=== PATIENT | male | born 1950 | race Caucasian/White ===

== ENCOUNTER 2017-12-19 12:06 | Inpatient (IN) | payer MEDICARE, MEDICAID, SELFPAY ==
[2017-12-19] VITALS (17 sets, daily range): BP systolic 105–153; BP diastolic 60–125; PULSE 90–122; RESP 12–30; TEMP 36.9–37.6; O2SAT 96–100; BMI 22.1; BMI 22.2
--- NOTE | 2017-12-19 12:16 | ED.RN ---
10 mg morphine sl. 0.5 mg of ativan po. medications given by hospice nurse prior to arrival.
--- NOTE | 2017-12-19 12:18 | NURSING ---
sammy hart (daughter)
--- NOTE | 2017-12-19 12:31 | EKG12_ITS ---
Test Reason : SOB Blood Pressure : / mmHG Vent. Rate : 114 BPM Atrial Rate : 114 BPM P-R Int : 122 ms QRS Dur : 078 ms QT Int : 318 ms P-R-T Axes : 085 080 065 degrees QTc Int : 438 ms Sinus tachycardia Possible Left atrial enlargement Borderline ECG Confirmed by ANA BARNHART, MAICO ([id number]), photograph editor LANDON HOBOSN ([id number]) on 12/21/2017 9:24:09 AM Referred By: Teri Jones Confirmed By:MAICO PEREZ MD
--- NOTE | 2017-12-19 12:31 | RAD_ITS ---
STUDY: X-RAY CHEST REASON FOR EXAM: Male, 67 years old. Cough and shortness of breath. TECHNIQUE: Single AP portable view of the chest. COMPARISON: Comparison is made with prior study dated July 11, 2013. FINDINGS: EKG electrodes are seen. Hyperinflation. Decreased bronchovascular markings more prominent in the upper lobes suggestive of emphysematous change. There is no demonstrated pleural abnormality. Normal size heart. Normal mediastinum and kaden. Normal visualized pulmonary arteries. Normal visualized aortic arch and descending thoracic aorta. There are degenerative changes of the visualized thoracic spine. Normal visualized ribs, clavicles, and shoulders. There is no demonstrated abnormality of the visualized soft tissue structures of the upper abdomen. RAD/Chest 1 View (Portable) IMPRESSION: Hyperinflation. Findings suggestive of emphysematous changes. Electronically Signed: Akbar Friedman MD at 13:03 EDT Tel [phone], Service support ,
[2017-12-19] MEDS: 0.9% Normal Saline 1,000 ML 150 ML IV (12:45)
[2017-12-19] MEDS: MethylPREDNISolone 125 MG/2 ML Vial IV (12:45)
[2017-12-19 12:47] LABS: Absolute Lymphocyte Count 1.39 X10^3/ul (0.83-4.51); Absolute Neutrophil Count 13.3 X10^3/uL (2.0-7.7); Basophil# 0.02 X10^3/uL; Basophil% 0.1 % (0-1); Eosinophil# 0.33 X10^3/uL; Hematocrit 39.8 % (40-54); Hemoglobin 12.7 g/dl (13.0-16.5); Lymphocyte # 1.39 X10^3/ul (4.0); Lymphocyte % 8.6 % (19-41); Mean Corp Hgb Conc 31.9 g/gl (32-36); Mean Corpuscular Volume 93.9 fL (80-94); Monocyte# 1.12 X10^3/uL; Monocyte% 6.9 % (0-10); Neutrophil # 13.29 X10^3/uL (2.7-7.7); Neutrophil % 82.2 % (47-70); POSITIVE COUNT NO; POSITIVE DIFFERENTIAL NO; POSITIVE MORPHOLOGY NO; Platelet Count 199 K/mm3 (150-450); RBC Distribution Width CV 12.7 % (11.6-14.6); RBC Distribution Width SD 43.7 fl (35.1-43.9); Red Blood Count 4.24 M/mm3 (4.6-6.2); White Blood Count 16.2 K/mm3 (4.4-11.0)
[2017-12-19] MEDS: Ipratropium/Albuterol Sulfate 3 ML AMPUL.NEB INHALATION ×3 (12:48→22:41)
[2017-12-19] MEDS: Albuterol 2.5 MG/3 ML VIAL.NEB. INHALATION (12:48)
[2017-12-19 12:57] LABS: Anion Gap 5 (5-15); BUN 15 mg/dL (7-18); Calcium,Total 8.4 mg/dL (8.5-10.1); Chloride 102 mmol/L (98-107); EST Glomerular Filtration Rate 79 mL/min (>60); Est Glom Filt Rate - Afr Amer 96 mL/min (>60); Estimated Creatinine Clearance 63.87 ml/min; Glucose 92 mg/dL (74-106); Potassium 3.8 mmol/L (3.5-5.1); Sodium Level 138 mmol/L (136-145)
[2017-12-19 13:05] LABS: Lactic Acid 0.8 mmol/L (0.4-2.0)
[2017-12-19 13:15] LABS: Allen Test POS; Base Excess 8 mmol/L (-2 to +2); Bicarbonate 32.6 mmol/L (22-26); Blood Gas Specimen Type ART; EPAP 10; FI02 30; PO2 91 mmHG (75-100); RR 12; SITE R Radial; SO2 97 % (95-99); Time Given 1307; Total Carbon Dioxide 34 mmol/L; pCO2 50.6 mmHg (35-45); pH 7.42 (7.35-7.45)
--- NOTE | 2017-12-19 13:29 | ED.DCSUM_ITS ---
- ER Visit Summary Date of Service: 12/19/17 Chief Complaint: Shortness of breath History of Present Illness: The patient is a 67 M who does not remember primary care physician's name. He reports that he has been on hospice since April or May of this year. However, the hospice nurse reports that he is full code. Patient reports his shortness of breath began yesterday and is gradually worsened. Severe at worst moderate currently. Is worsened by walking periods relieved by oxygen and his nebulizer. He believes that this is because he ate cheese pizza. Patient denies any fever or chills. Does report he has a cough that began yesterday is productive of lee sputum without blood. He denies any chest pain. Physical Examination: Vitals: Stable. Afebrile. General: Well-nourished and well-developed. Head: Normocephalic atraumatic. Neck: Supple, no lymphadenopathy. No JVD. Nontender. Cardiovascular: Tachycardic regular rhythm. No murmurs. Respiratory: Moderate respiratory distress with mild wheezing bilaterally. Greatly decreased air movement.. Abdominal: Soft, nontender, nondistended, normal bowel sounds. No guarding, rebound, or peritoneal signs. Back: Nontender. Extremities: Nontender, 1+ pitting edema to his lower extremity bilaterally.. Skin: Normal color, no rash. Neurologic: Alert and oriented ?3. Cranial nerves II through XII are intact. Normal strength and sensation. Psych: Normal affect. Test Results: EKG is sinus tachycardia [address] changes. ABC is more for white count of 16.2 with 82 7 neutrophils and 9 lymphocytes. H&H is 12.7 39.8. Chem-7 is more for calcium 8.4. Troponin is negative. Lactic acid is 0.8. ABG shows a pH of 7.417 with a CO2 of 50.6, O2 of 91, bicarb of 32.6. Chest x-ray shows severe emphysematous changes. Emergency Department Course and Treatment: Patient was placed on BiPAP. He was given albuterol Atrovent aerosols. He was given a dose of Solu-Medrol IV. I did have a prolonged discussion with the patient about his wishes if he was to worsen. He is having a difficult time coming up with a definitive answer. Treatment Plan: Patient will be discussed with the hospitalist and admitted for further evaluation and treatment. I did discuss with him that the issue of intubation is going to be asked repeatedly and he needs to make a definitive decision as to what he would like to do with this. Disposition: Admitted in serious condition. Impression: 1. COPD exacerbation. 2. Hospice patient. 3. DNR CCA. This note was generated with [employer] dictation software. It may contain incorrect words, spelling, and punctuation that were not noted in review of the chart prior to signing ED Disposition - Plan for ED Patient: Chief Complaint: Shortness of Breath
--- NOTE | 2017-12-19 13:37 | PCM.HP.STD ---
Problem List (1) Acute exacerbation of chronic obstructive pulmonary disease (COPD) Status: Acute (2) Leukocytosis (leucocytosis) Status: Acute Qualifiers: Leukocytosis type: unspecified Qualified Code(s): D72.829 - Elevated white blood cell count, unspecified History of Present Illness Date of Admission: 12/19/17 Chief Complaint: Shortness of breath - 2 days The patient is a 67 year old M with past medical history of COPD, on 3 L oxygen at home, in hospice since April 2017, who comes in with complaints of shortness of breath and cough ongoing since last night. Patient said that he ate some cheese pizza and that does not always agree with him. He started having congestion and shortness of breath associated with wheezing. He found that he was getting worse and the EMS was called. On arrival, they found him in a tripod position, having labored breathing, respiratory rate was 44, and air entry was diminished bilaterally. He was saturating in the high 70s, unable to say any words, started on CPAP with some improvement. In the ED, his heart rate was 122, blood pressure 153/125, his blood pressure later settled to 105/60, respiratory rate was 27, SPO2 was 100% on BiPAP. His admitting blood work showed WBC count of 16.2, Hb of 12.7, platelet count 199, BMP was unremarkable, ABG showed pH 7.42, PCO2 was 50.6, PO2 91 Admitting chest x-ray showed hyperinflation with no infiltrate. Past Medical History Past Medical History (Chronic Problems): Chronic Problems COPD (chronic obstructive pulmonary disease) (Chronic) Tobacco user (Chronic) Generalized osteoarthritis (Chronic) Allergies No Known Allergies Allergy (Verified 12/19/17 12:10) Home Medications: Ambulatory Orders Medication Instructions Recorded Aspirin 325 mg PO DAILY@0800 07/11/13 Albuterol Inhaler [Ventolin Hfa] 1 - 2 puff INHALATION Q2H PRN PRN 07/13/13 #1 Beclomethasone Diprop Inhaler 1 puff INHALATION BID 12/15/16 [Qvar 80 Mcg Inhaler] Gabapentin [Neurontin] 300 mg PO TID 12/15/16 Pravastatin Sodium [Pravachol] 20 mg PO QHS 12/15/16 Alfuzosin HCl [Alfuzosin HCl ER] 10 mg PO DAILY 12/19/17 Ipratropium/Albuterol Sulfate 3 ml INHALATION 4X/DAY 12/19/17 [Duoneb] Meloxicam [Meloxicam] 15 mg PO DAILY 12/19/17 Omeprazole [Omeprazole] 20 mg PO DAILY 12/19/17 Surgical History: appendectomy Psychiatric History: No pertinent psych hx Lives: Spouse/ Significant Other, With Family Smoking Status: Former smoker Tobacco Use: Non-smoker Alcohol: None Drugs: None - *Family History Maternal History Items: Stroke Paternal History Items: Heart Disease Review of Systems Constitutional: Reports: Weakness. Denies: Anorexia, Chills, Fever, Malaise, Weight Change Eyes: Denies: Blurred vision, Cataracts, Conjunctivae Inflammation, Pain, Redness, Vision Change HEENT: Reports: Nasal Congestion. Denies: Difficulty Hearing, Difficulty Swallowing, Head Aches, Hearing Changes, Sinus Congestion, Sinus Drainage, Sore Throat Cardiovascular: Reports: Chest Tightness. Denies: Chest Pain, Claudication, Light Headedness, Orthopnea, Palpitations, Paroxysmal Noc. Dyspnea, Syncope Respiratory: Reports: Cough, Shortness of breath at rest, Shortness of breath upon exertion. Denies: Pleuritic Pain, Sputum production Gastrointestinal: Denies: Abdominal Pain, Constipation, Nausea, Vomiting Genitourinary: Denies: Dysuria, Frequency, Incontinence, Nocturia Musculoskeletal: Denies: Joint Pain, Joint stiffness, Joint swelling, Joint Tenderness Skin: Denies: Dryness, Jaundice, Rash, Wounds Neurological: Denies: Difficulty swallowing, Focal weakness, Headaches, Numbness, Tingling Psychiatric: Denies: Anxiety, Depression, Homicidal Ideations, Suicidal Ideations Hematologic/ Lymphatic: Denies: Easy Bruising, Easy Bleeding VTE Information - Inpt Only VTE Present on Admission: No VTE Pharm Prophylaxis ordered?: Yes Patient Problems: Active and Suspected Problems Acute exacerbation of chronic obstructive pulmonary disease (COPD) (Acute) Leukocytosis (leucocytosis) (Acute) - Physical Exam General: Alert, Oriented x3, Cooperative, - - in moderate HEENT: Atraumatic, PERRLA, EOMI, Normocephalic Oral: Dry Mucosa Neck: Supple, No JVD, Negative Carotid Bruits Lungs: Clear to auscultation, Normal air movement, Diminished, - - on Bipap Cardiovascular: Regular rate, Regular Rhythm, Normal S1, Normal S2, No murmurs, Tachycardic Abdomen: Bowel Sounds Present, Soft, Non Tender, Non-Distended, No Hepato-splenomegaly Extremities: No edema Skin: No rashes, No breakdown Musculoskeletal: No Tenderness to Palpation of Joints or Extremities Lymphatic: No Cervical, Supraclavicular, or Inguinal Adenopathy Neurological: Cranial nerves II-XII grossly intact, Neuro grossly intact Psych/Mental Status: Normal Affect, Appropriate Vital Signs Temp Pulse Resp BP Pulse Ox 99.7 F H 101 H 25 H 105/60 99 12/19/17 12:07 12/19/17 12:48 12/19/17 12:48 12/19/17 12:17 12/19/17 12:17 Oxygen Delivery Method Bi-pap Weight: 62.142 kg Body Mass Index (BMI) 22.1 Laboratory Tests Past 24 Hrs 12/19/17 12/19/17 12/19/17 12:15 12:15 12:15 WBC 16.2 H RBC 4.24 L Hgb 12.7 L Hct 39.8 L MCV 93.9 MCH 30.0 MCHC 31.9 L RDW 12.7 RDW Differential 43.7 Plt Count 199 MPV 10.0 Immature Gran % (Auto) 0.200 Neut % (Auto) 82.2 H Lymph % (Auto) 8.6 L [place] % (Auto) 6.9 Eos % (Auto) 2.0 Baso % (Auto) 0.1 Absolute Neuts (auto) 13.3 H Absolute Lymphs (auto) 1.39 Total Counted Not Reportable Specimen Type Sample Site pH Bicarbonate Actual POC Total CO2 Base Excess O2 Saturation O2 % ABG pCO2 ABG pO2 Bhargav Test Respiration Rate O2 Delivery Device EPAP Blood Gas Notified Whom Blood Gas Notified Time Sodium 138 Potassium 3.8 Chloride 102 Carbon Dioxide 31.0 Anion Gap 5 BUN 15 Creatinine 1.00 Estim Creat Clear Calc 63.87 Est GFR (MDRD) Af Amer 96 Est GFR (MDRD) Non-Af 79 BUN/Creatinine Ratio 15.0 Glucose 92 Lactic Acid 0.8 Calcium 8.4 L Troponin I 0.017 12/19/17 13:08 WBC RBC Hgb Hct MCV MCH MCHC RDW RDW Differential Plt Count MPV Immature Gran % (Auto) Neut % (Auto) Lymph % (Auto) [place] % (Auto) Eos % (Auto) Baso % (Auto) Absolute Neuts (auto) Absolute Lymphs (auto) Total Counted Specimen Type ART Sample Site R Radial pH 7.42 Bicarbonate Actual 32.6 H POC Total CO2 34 Base Excess 8 H O2 Saturation 97 O2 % 30 ABG pCO2 50.6 H ABG pO2 91 Bhargav Test POS Respiration Rate 12 O2 Delivery Device Bi / C PAP EPAP 10 Blood Gas Notified Whom ED Blood Gas Notified Time 1307 Sodium Potassium Chloride Carbon Dioxide Anion Gap BUN Creatinine Estim Creat Clear Calc Est GFR (MDRD) Af Amer Est GFR (MDRD) Non-Af BUN/Creatinine Ratio Glucose Lactic Acid Calcium Troponin I Assessment/Plan All Active Problems Acute exacerbation of chronic obstructive pulmonary disease (COPD) (Acute) Leukocytosis (leucocytosis) (Acute) 67 year old M with past medical history of COPD, on 3 L oxygen at home, in hospice since April 2017, who comes in with complaints of shortness of breath and cough ongoing since last night. 1. Acute hypoxic respiratory failure secondary to COPD exacerbation, currently on BiPAP, will continue breathing treatments, IV steroids, wean off oxygen 2. Acute COPD exacerbation, no infiltrates seen on x-ray, will continue on IV steroids, breathing treatment, IV azithromycin 3. Leukocytosis, likely secondary to inhaled steroids versus reactive, will trend lab in a.m. 4. Hyperlipidemia, on statin 5. BPH on alfuzosin 6. DVT Ppx- Heparin SC 7. Code status: Patient is in hospice, full code. He admits that several people have talked to him about addressing his CODE STATUS. He understands that if his lungs and oxygen requirement should get bad, he does not want to be intubated, he wants to be allowed to take the easy way out I did explain the differences between DNR CCA, DNR CCA and full code. He would like to appoint his daughter who he lives with as his power of workers compensation attorney for healthcare as his other son lives in [place]. Try to call the daughter phone number listed in the system but the number was wrong. Case management consulted to assist in Health care power of workers compensation attorney paperwork His plan is to go back to hospice after discharge. Time spent in addressing CODE STATUS and the plan of care was 20 minutes. Code Visit Inpatient E&M: 63445 Init Hosp L3
[2017-12-19] MEDS: 0.9% Normal Saline 1,000 ML 75 ML IV (16:01)
[2017-12-19] MEDS: Gabapentin 300 MG Capsule PO ×2 (16:04→21:35)
[2017-12-19] MEDS: Heparin Injection (Vial) 5,000 UNIT/ML VIAL 5000 UNIT SC ×2 (16:05→21:35)
--- NOTE | 2017-12-19 16:31 | CASEMGMT ---
ROSAMARIA called [facility] and spoke with Yoana. She verified patient has been active with them since April of 2017 for COPD. He signed Hospice revocation papers today so he can pursue aggressive treatment. ROSAMARIA told Yoana BLANK will communicate with them once ROSAMARIA knows more about d/c. Rubi MARQUEZ FUSE CUP EXPANDER
[2017-12-19] MEDS: 0.9% NaCl Peripheral Flush Adult/Peds IV (21:35)
[2017-12-19] MEDS: guaiFENesin 600 MG Tablet PO (21:35)
[2017-12-19] MEDS: Pravastatin 20 MG Tablet PO (21:35)
[2017-12-20] VITALS (23 sets, daily range): BP systolic 116–175; BP diastolic 61–88; PULSE 74–126; RESP 12–28; TEMP 36.2–37.2; O2SAT 92–100
[2017-12-20] MEDS: Ipratropium/Albuterol Sulfate 3 ML AMPUL.NEB INHALATION ×6 (02:12→23:16)
[2017-12-20] MEDS: 0.9% NaCl Peripheral Flush Adult/Peds IV ×4 (05:22→22:04)
[2017-12-20 05:31] LABS: Absolute Lymphocyte Count 0.72 X10^3/ul (0.83-4.51); Basophil# 0.01 X10^3/uL; Basophil% 0.1 % (0-1); Hematocrit 36.3 % (40-54); Hemoglobin 11.5 g/dl (13.0-16.5); Lymphocyte # 0.72 X10^3/ul (4.0); Lymphocyte % 4.9 % (19-41); Mean Corp Hgb Conc 31.7 g/gl (32-36); Mean Corpuscular Hgb 30.3 pg (27.0-32.0); Mean Corpuscular Volume 95.5 fL (80-94); Mean Platelet Vol. 9.5 fl (6.2-12.0); Monocyte# 0.91 X10^3/uL; Monocyte% 6.2 % (0-10); Neutrophil # 12.95 X10^3/uL (2.7-7.7); Neutrophil % 88.5 % (47-70); Platelet Count 183 K/mm3 (150-450); RBC Distribution Width CV 12.6 % (11.6-14.6); RBC Distribution Width SD 42.4 fl (35.1-43.9); White Blood Count 14.6 K/mm3 (4.4-11.0)
[2017-12-20 05:33] LABS: POSITIVE COUNT NO; POSITIVE DIFFERENTIAL NO; POSITIVE MORPHOLOGY NO
[2017-12-20] MEDS: Gabapentin 300 MG Capsule PO ×3 (05:46→22:04)
[2017-12-20] MEDS: Heparin Injection (Vial) 5,000 UNIT/ML VIAL 5000 UNIT SC ×3 (05:46→22:03)
[2017-12-20] MEDS: Magnesium Hydroxide 30 ML UDC PO (05:50)
[2017-12-20 05:54] LABS: Anion Gap 6 (5-15); BUN 18 mg/dL (7-18); Calcium,Total 8.6 mg/dL (8.5-10.1); Chloride 105 mmol/L (98-107); EST Glomerular Filtration Rate 79 mL/min (>60); Est Glom Filt Rate - Afr Amer 96 mL/min (>60); Estimated Creatinine Clearance 64.15 ml/min; Glucose 131 mg/dL (74-106); Potassium 4.5 mmol/L (3.5-5.1); Sodium Level 142 mmol/L (136-145)
[2017-12-20] MEDS: Pantoprazole Sodium 20 MG Tablet PO (09:22)
[2017-12-20] MEDS: Bisacodyl 5 MG Tablet PO (09:22)
[2017-12-20] MEDS: Aspirin 325 MG Tablet PO (09:22)
[2017-12-20] MEDS: guaiFENesin 600 MG Tablet PO ×2 (09:22→22:04)
--- NOTE | 2017-12-20 09:30 | CPS ---
PATIENT WORKING ON PEP ON OWN
--- NOTE | 2017-12-20 13:18 | CASEMGMT ---
Face to Face with patient for initial transition planning/care coordination assessment. RN MERCEDES introduced self and role at [facility], pt voices understanding and consents to assessment at this time. Pt is lying in bed in no distress at this time. Pt is A/Ox4 at this time and answers all questions appropriately at this time. Care providers, pharmacy, and demographics verified. See attached link. Pt voices no further concerns/needs at this time. Advised pt to ask for CM if any further questions/concerns/needs arise, voices understanding. PLAN: Home w/ resumption [facility]ospice [facility]
--- NOTE | 2017-12-20 14:11 | PCM.PROGNOTE ---
<Karan Ghotra - Last Filed: 12/20/17 14:11> Patient Problems: Active and Suspected Problems Acute exacerbation of chronic obstructive pulmonary disease (COPD) (Acute) Leukocytosis (leucocytosis) (Acute) Subjective: SOB mildly improved. Continue to have productive cough. No fever or chills. Quit smoking about 1 year ago. Does use home o2 at 3 lpm chronically. - Physical Exam General: Alert, Oriented x3, Cooperative HEENT: Atraumatic, PERRLA, EOMI, Normocephalic Neck: Supple, No JVD, Negative Carotid Bruits Lungs: Diminished Cardiovascular: Regular rate, No murmurs Abdomen: Bowel Sounds Present, Soft, Non Tender Extremities: No edema, Capillary Refill Less than 3 Seconds Skin: No rashes, No breakdown Musculoskeletal: No Tenderness to Palpation of Joints or Extremities Neurological: Cranial nerves II-XII grossly intact Psych/Mental Status: Normal Affect, Appropriate, Alert and oriented to time, place, person, mood and affect Vital Signs Temp Pulse Resp BP Pulse Ox 97.4 F L 99 16 124/61 H 99 12/20/17 09:15 12/20/17 11:32 12/20/17 11:32 12/20/17 09:15 12/20/17 11:32 Oxygen Flow Rate (L/min) 3 Oxygen Delivery Method Nasal Cannula Weight: 137 lb 9.6 oz Body Mass Index (BMI) 22.1 Intake and Output for Last 24 Hours 12/18/17 12/19/17 12/20/17 23:59 23:59 23:59 Intake Total 1288 / 1288 926 / 926 Balance 1288 / 1288 926 / 926 Laboratory Tests Past 24 Hrs 12/20/17 12/20/17 05:15 05:15 WBC 14.6 H RBC 3.80 L Hgb 11.5 L Hct 36.3 L MCV 95.5 H MCH 30.3 MCHC 31.7 L RDW 12.6 RDW Differential 42.4 Plt Count 183 MPV 9.5 Immature Gran % (Auto) 0.300 Neut % (Auto) 88.5 H Lymph % (Auto) 4.9 L [place] % (Auto) 6.2 Eos % (Auto) 0.0 Baso % (Auto) 0.1 Absolute Neuts (auto) 13.0 H Absolute Lymphs (auto) 0.72 L Total Counted Not Reportable Sodium 142 Potassium 4.5 Chloride 105 Carbon Dioxide 31.0 Anion Gap 6 BUN 18 Creatinine 1.00 Estim Creat Clear Calc 64.15 Est GFR (MDRD) Af Amer 96 Est GFR (MDRD) Non-Af 79 BUN/Creatinine Ratio 18.0 Glucose 131 H Calcium 8.6 Medical Necessity - Tobacco Use Smoking Status: Former smoker Tobacco Use: Cigarettes, Cigars, Pipe Assessment/Plan All Active Problems Acute exacerbation of chronic obstructive pulmonary disease (COPD) (Acute) Leukocytosis (leucocytosis) (Acute) 1. Acute sepsis 2/2 acute bronchitis - present on admission with WBC elevation, tachycardia, tachypnea. azithromycin. WBC improved. Afebrile. Tachy. Sputum cx. No infiltrate on imaging. LA negative. 2. Acute COPD exacerbation with chronic hypoxic resp failure - mildly improved. Very diminished. 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 Continue steroids, aerosols, IS/PEP therapy, mucinex. 3. HLD - statin 4. BPH - flomax 5. Former smoker. DVT ppx: heparin DC planning: slow improvement. This patient was seen by Karan Ghotra PA-C under the supervision of Doctor Jacob. <Alex James - Last Filed: 12/20/17 15:46> Subjective: Patient seen and examined. Patient has advanced COPD stage IV on 3 L of home oxygen and BiPAP at night. Patient has cough, wheezing and rhonchi. Patient admitted with shortness of breath. - Physical Exam General: Alert, Oriented x3, Cooperative, - - Thin built HEENT: Atraumatic, PERRLA, EOMI, Normocephalic Neck: Supple, No JVD, Negative Carotid Bruits Lungs: Diminished, Rhonchi, Short of Breath, Wheezes Cardiovascular: Regular rate, Regular Rhythm, Normal S1, Normal S2, No murmurs Abdomen: Bowel Sounds Present, Soft, Non Tender Extremities: No edema, Capillary Refill Less than 3 Seconds Skin: No rashes, No breakdown Musculoskeletal: No Tenderness to Palpation of Joints or Extremities Neurological: Cranial nerves II-XII grossly intact Psych/Mental Status: Normal Affect, Appropriate Vital Signs Temp Pulse Resp BP Pulse Ox 97.4 F L 99 16 124/61 H 99 12/20/17 09:15 12/20/17 11:32 12/20/17 11:32 12/20/17 09:15 12/20/17 11:32 Oxygen Flow Rate (L/min) 3 Oxygen Delivery Method Nasal Cannula Weight: 137 lb 9.6 oz Body Mass Index (BMI) 22.1 Intake and Output for Last 24 Hours 12/18/17 12/19/17 12/20/17 23:59 23:59 23:59 Intake Total 1288 / 1288 926 / 926 Balance 1288 / 1288 926 / 926 Laboratory Tests Past 24 Hrs 12/20/17 12/20/17 05:15 05:15 WBC 14.6 H RBC 3.80 L Hgb 11.5 L Hct 36.3 L MCV 95.5 H MCH 30.3 MCHC 31.7 L RDW 12.6 RDW Differential 42.4 Plt Count 183 MPV 9.5 Immature Gran % (Auto) 0.300 Neut % (Auto) 88.5 H Lymph % (Auto) 4.9 L [place] % (Auto) 6.2 Eos % (Auto) 0.0 Baso % (Auto) 0.1 Absolute Neuts (auto) 13.0 H Absolute Lymphs (auto) 0.72 L Total Counted Not Reportable Sodium 142 Potassium 4.5 Chloride 105 Carbon Dioxide 31.0 Anion Gap 6 BUN 18 Creatinine 1.00 Estim Creat Clear Calc 64.15 Est GFR (MDRD) Af Amer 96 Est GFR (MDRD) Non-Af 79 BUN/Creatinine Ratio 18.0 Glucose 131 H Calcium 8.6 Assessment/Plan This patient was seen in conjunction with Karan LAI. I have independently interviewed and examined the patient and reviewed pertinent history, examination findings, laboratory and plan of management. I have reviewed the note and agree with the documented findings with the few additional points. In brief, patient is admitted for acute on chronic shortness of breath and wheezing consistent with COPD exacerbation with acute bronchitis, most probably viral. Currently still on 3 L of oxygen, consistent with chronic combined hypoxic respiratory failure. Chest x-ray does not show acute infiltrate but emphysematous changes. Labs reviewed and shows leukocytosis with neutrophil 88%. I have discussed my assessment with Karan LAI and orders have been reviewed. Clinical Impression(s) from Imaging Studies Chest X-Ray 12/19/17 12:31 IMPRESSION: Hyperinflation. Findings suggestive of emphysematous changes. Laboratory Results 12/20/17 05:15: WBC 14.6 H, RBC 3.80 L, Hgb 11.5 L, Hct 36.3 L, MCV 95.5 H, MCH 30.3, MCHC 31.7 L, RDW 12.6, RDW Differential 42.4, Plt Count 183, MPV 9.5, Immature Gran % (Auto) 0.300, Neut % (Auto) 88.5 H, Lymph % (Auto) 4.9 L, [place] % (Auto) 6.2, Eos % (Auto) 0.0, Baso % (Auto) 0.1, Absolute Neuts (auto) 13.0 H, Absolute Lymphs (auto) 0.72 L, Total Counted Not Reportable 12/20/17 05:15: Sodium 142, Potassium 4.5, Chloride 105, Carbon Dioxide 31.0, Anion Gap 6, BUN 18, Creatinine 1.00, Estim Creat Clear Calc 64.15, Est GFR (MDRD) Af Amer 96, Est GFR (MDRD) Non-Af 79, BUN/Creatinine Ratio 18.0, Glucose 131 H, Calcium 8.6 Active Medications Acetaminophen (Tylenol) 650 mg PO Q6H PRN PRN PRN Reason: Mild Pain (1-3)/Temp > 100.7 F Albuterol Sulfate (Ventolin Aerosols) 2.5 mg INHALATION Q2H PRN PRN PRN Reason: SHORTNESS OF BREATH Albuterol/Ipratropium (Duoneb) 3 ml INHALATION Q4H.RT [facility] Last Admin: 12/20/17 15:05 Dose: 3 ml Aspirin (Aspirin) 325 mg PO DAILY@0800 [facility] Last Admin: 12/20/17 09:22 Dose: 325 mg Azithromycin (Zithromax) 500 mg PO Q24 [facility] Stop: 12/22/17 10:01 Bisacodyl (Dulcolax) 5 mg PO DAILY PRN PRN PRN Reason: Constipation Last Admin: 12/20/17 09:22 Dose: 5 mg Gabapentin (Neurontin) 300 mg PO TID [facility] Last Admin: 12/20/17 13:11 Dose: 300 mg Guaifenesin (Mucinex) 600 mg PO BID [facility] Last Admin: 12/20/17 09:22 Dose: 600 mg Heparin Sodium (Porcine) (Heparin Na) 5,000 unit SC Q8 [facility] Last Admin: 12/20/17 13:11 Dose: 5,000 unit Magnesium Hydroxide (Milk Of Magnesia) 30 ml PO DAILY PRN PRN Reason: Constipation Last Admin: 12/20/17 05:50 Dose: 30 ml Methylprednisolone (Solu-Medrol) 40 mg IV Q8 [facility] Last Admin: 12/20/17 13:11 Dose: 40 mg Nutritional Formula (Lactose Free) (Ensure Enlive) 120 ml PO 4X/DAY [facility] Last Admin: 12/20/17 13:11 Dose: 120 ml Ondansetron HCl (Zofran) 4 mg IV Q8H PRN PRN PRN Reason: NAUSEA Pantoprazole Sodium (Protonix) 20 mg PO DAILY [facility] Last Admin: 12/20/17 09:22 Dose: 20 mg Pravastatin Sodium (Pravachol) 20 mg PO QHS [facility] Last Admin: 12/19/17 21:35 Dose: 20 mg Psyllium Hydrophilic Mucilloid (Metamucil) 1 packet PO DAILY PRN PRN PRN Reason: CONSTIPATION Sodium Chloride () 5 - 30 ml IV UD PRN PRN Reason: SALINE FLUSH Last Admin: 12/20/17 13:12 Dose: 10 ml Tamsulosin HCl (Flomax) 0.4 mg PO DAILY@1730 [facility] Code Visit Inpatient E&M: 77886 [facility] Hosp L3
--- NOTE | 2017-12-20 14:16 | PN_ITS ---
<Karan Ghotra - Last Filed: 12/20/17 14:11> Patient Problems: Active and Suspected Problems Acute exacerbation of chronic obstructive pulmonary disease (COPD) (Acute) Leukocytosis (leucocytosis) (Acute) Subjective: SOB mildly improved. Continue to have productive cough. No fever or chills. Quit smoking about 1 year ago. Does use home o2 at 3 lpm chronically. - Physical Exam General: Alert, Oriented x3, Cooperative HEENT: Atraumatic, PERRLA, EOMI, Normocephalic Neck: Supple, No JVD, Negative Carotid Bruits Lungs: Diminished Cardiovascular: Regular rate, No murmurs Abdomen: Bowel Sounds Present, Soft, Non Tender Extremities: No edema, Capillary Refill Less than 3 Seconds Skin: No rashes, No breakdown Musculoskeletal: No Tenderness to Palpation of Joints or Extremities Neurological: Cranial nerves II-XII grossly intact Psych/Mental Status: Normal Affect, Appropriate, Alert and oriented to time, place, person, mood and affect Vital Signs Temp Pulse Resp BP Pulse Ox 97.4 F L 99 16 124/61 H 99 12/20/17 09:15 12/20/17 11:32 12/20/17 11:32 12/20/17 09:15 12/20/17 11:32 Oxygen Flow Rate (L/min) 3 Oxygen Delivery Method Nasal Cannula Weight: 137 lb 9.6 oz Body Mass Index (BMI) 22.1 Intake and Output for Last 24 Hours 12/18/17 12/19/17 12/20/17 23:59 23:59 23:59 Intake Total 1288 / 1288 926 / 926 Balance 1288 / 1288 926 / 926 Laboratory Tests Past 24 Hrs 12/20/17 12/20/17 05:15 05:15 WBC 14.6 H RBC 3.80 L Hgb 11.5 L Hct 36.3 L MCV 95.5 H MCH 30.3 MCHC 31.7 L RDW 12.6 RDW Differential 42.4 Plt Count 183 MPV 9.5 Immature Gran % (Auto) 0.300 Neut % (Auto) 88.5 H Lymph % (Auto) 4.9 L Gosper % (Auto) 6.2 Eos % (Auto) 0.0 Baso % (Auto) 0.1 Absolute Neuts (auto) 13.0 H Absolute Lymphs (auto) 0.72 L Total Counted Not Reportable Sodium 142 Potassium 4.5 Chloride 105 Carbon Dioxide 31.0 Anion Gap 6 BUN 18 Creatinine 1.00 Estim Creat Clear Calc 64.15 Est GFR (MDRD) Af Amer 96 Est GFR (MDRD) Non-Af 79 BUN/Creatinine Ratio 18.0 Glucose 131 H Calcium 8.6 Medical Necessity - Tobacco Use Smoking Status: Former smoker Tobacco Use: Cigarettes, Cigars, Pipe Assessment/Plan All Active Problems Acute exacerbation of chronic obstructive pulmonary disease (COPD) (Acute) Leukocytosis (leucocytosis) (Acute) 1. Acute sepsis 2/2 acute bronchitis - present on admission with WBC elevation, tachycardia, tachypnea. azithromycin. WBC improved. Afebrile. Tachy. Sputum cx. No infiltrate on imaging. LA negative. 2. Acute COPD exacerbation with chronic hypoxic resp failure - mildly improved. Very diminished. 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 Continue steroids, aerosols, IS/PEP therapy, mucinex. 3. HLD - statin 4. BPH - flomax 5. Former smoker. DVT ppx: heparin DC planning: slow improvement. This patient was seen by Karan Ghotra PA-C under the supervision of Doctor Jacob. <Alex James - Last Filed: 12/20/17 15:46> Subjective: Patient seen and examined. Patient has advanced COPD stage IV on 3 L of home oxygen and BiPAP at night. Patient has cough, wheezing and rhonchi. Patient admitted with shortness of breath. - Physical Exam General: Alert, Oriented x3, Cooperative, - - Thin built HEENT: Atraumatic, PERRLA, EOMI, Normocephalic Neck: Supple, No JVD, Negative Carotid Bruits Lungs: Diminished, Rhonchi, Short of Breath, Wheezes Cardiovascular: Regular rate, Regular Rhythm, Normal S1, Normal S2, No murmurs Abdomen: Bowel Sounds Present, Soft, Non Tender Extremities: No edema, Capillary Refill Less than 3 Seconds Skin: No rashes, No breakdown Musculoskeletal: No Tenderness to Palpation of Joints or Extremities Neurological: Cranial nerves II-XII grossly intact Psych/Mental Status: Normal Affect, Appropriate Vital Signs Temp Pulse Resp BP Pulse Ox 97.4 F L 99 16 124/61 H 99 12/20/17 09:15 12/20/17 11:32 12/20/17 11:32 12/20/17 09:15 12/20/17 11:32 Oxygen Flow Rate (L/min) 3 Oxygen Delivery Method Nasal Cannula Weight: 137 lb 9.6 oz Body Mass Index (BMI) 22.1 Intake and Output for Last 24 Hours 12/18/17 12/19/17 12/20/17 23:59 23:59 23:59 Intake Total 1288 / 1288 926 / 926 Balance 1288 / 1288 926 / 926 Laboratory Tests Past 24 Hrs 12/20/17 12/20/17 05:15 05:15 WBC 14.6 H RBC 3.80 L Hgb 11.5 L Hct 36.3 L MCV 95.5 H MCH 30.3 MCHC 31.7 L RDW 12.6 RDW Differential 42.4 Plt Count 183 MPV 9.5 Immature Gran % (Auto) 0.300 Neut % (Auto) 88.5 H Lymph % (Auto) 4.9 L Gosper % (Auto) 6.2 Eos % (Auto) 0.0 Baso % (Auto) 0.1 Absolute Neuts (auto) 13.0 H Absolute Lymphs (auto) 0.72 L Total Counted Not Reportable Sodium 142 Potassium 4.5 Chloride 105 Carbon Dioxide 31.0 Anion Gap 6 BUN 18 Creatinine 1.00 Estim Creat Clear Calc 64.15 Est GFR (MDRD) Af Amer 96 Est GFR (MDRD) Non-Af 79 BUN/Creatinine Ratio 18.0 Glucose 131 H Calcium 8.6 Assessment/Plan This patient was seen in conjunction with Karan LAI. I have independently interviewed and examined the patient and reviewed pertinent history, examination findings, laboratory and plan of management. I have reviewed the note and agree with the documented findings with the few additional points. In brief, patient is admitted for acute on chronic shortness of breath and wheezing consistent with COPD exacerbation with acute bronchitis, most probably viral. Currently still on 3 L of oxygen, consistent with chronic combined hypoxic respiratory failure. Chest x-ray does not show acute infiltrate but emphysematous changes. Labs reviewed and shows leukocytosis with neutrophil 88%. I have discussed my assessment with Karan LAI and orders have been reviewed. Clinical Impression(s) from Imaging Studies Chest X-Ray 12/19/17 12:31 IMPRESSION: Hyperinflation. Findings suggestive of emphysematous changes. Laboratory Results 12/20/17 05:15: WBC 14.6 H, RBC 3.80 L, Hgb 11.5 L, Hct 36.3 L, MCV 95.5 H, MCH 30.3, MCHC 31.7 L, RDW 12.6, RDW Differential 42.4, Plt Count 183, MPV 9.5, Immature Gran % (Auto) 0.300, Neut % (Auto) 88.5 H, Lymph % (Auto) 4.9 L, Gosper % (Auto) 6.2, Eos % (Auto) 0.0, Baso % (Auto) 0.1, Absolute Neuts (auto) 13.0 H, Absolute Lymphs (auto) 0.72 L, Total Counted Not Reportable 12/20/17 05:15: Sodium 142, Potassium 4.5, Chloride 105, Carbon Dioxide 31.0, Anion Gap 6, BUN 18, Creatinine 1.00, Estim Creat Clear Calc 64.15, Est GFR (MDRD) Af Amer 96, Est GFR (MDRD) Non-Af 79, BUN/Creatinine Ratio 18.0, Glucose 131 H, Calcium 8.6 Active Medications Acetaminophen (Tylenol) 650 mg PO Q6H PRN PRN PRN Reason: Mild Pain (1-3)/Temp > 100.7 F Albuterol Sulfate (Ventolin Aerosols) 2.5 mg INHALATION Q2H PRN PRN PRN Reason: SHORTNESS OF BREATH Albuterol/Ipratropium (Duoneb) 3 ml INHALATION Q4H.RT [facility] Last Admin: 12/20/17 15:05 Dose: 3 ml Aspirin (Aspirin) 325 mg PO DAILY@0800 [facility] Last Admin: 12/20/17 09:22 Dose: 325 mg Azithromycin (Zithromax) 500 mg PO Q24 [facility] Stop: 12/22/17 10:01 Bisacodyl (Dulcolax) 5 mg PO DAILY PRN PRN PRN Reason: Constipation Last Admin: 12/20/17 09:22 Dose: 5 mg Gabapentin (Neurontin) 300 mg PO TID [facility] Last Admin: 12/20/17 13:11 Dose: 300 mg Guaifenesin (Mucinex) 600 mg PO BID [facility] Last Admin: 12/20/17 09:22 Dose: 600 mg Heparin Sodium (Porcine) (Heparin Na) 5,000 unit SC Q8 [facility] Last Admin: 12/20/17 13:11 Dose: 5,000 unit Magnesium Hydroxide (Milk Of Magnesia) 30 ml PO DAILY PRN PRN Reason: Constipation Last Admin: 12/20/17 05:50 Dose: 30 ml Methylprednisolone (Solu-Medrol) 40 mg IV Q8 [facility] Last Admin: 12/20/17 13:11 Dose: 40 mg Nutritional Formula (Lactose Free) (Ensure Enlive) 120 ml PO 4X/DAY [facility] Last Admin: 12/20/17 13:11 Dose: 120 ml Ondansetron HCl (Zofran) 4 mg IV Q8H PRN PRN PRN Reason: NAUSEA Pantoprazole Sodium (Protonix) 20 mg PO DAILY [facility] Last Admin: 12/20/17 09:22 Dose: 20 mg Pravastatin Sodium (Pravachol) 20 mg PO QHS [facility] Last Admin: 12/19/17 21:35 Dose: 20 mg Psyllium Hydrophilic Mucilloid (Metamucil) 1 packet PO DAILY PRN PRN PRN Reason: CONSTIPATION Sodium Chloride () 5 - 30 ml IV UD PRN PRN Reason: SALINE FLUSH Last Admin: 12/20/17 13:12 Dose: 10 ml Tamsulosin HCl (Flomax) 0.4 mg PO DAILY@1730 [facility] Code Visit Inpatient E&M: 81228 [facility] L[facility]
--- NOTE | 2017-12-20 16:19 | CPS ---
patient working on pep therapy on own.
[2017-12-20] MEDS: Tamsulosin HCl 0.4 MG Capsule PO (17:12)
[2017-12-20] MEDS: Pravastatin 20 MG Tablet PO (22:04)
[2017-12-21] VITALS (12 sets, daily range): BP systolic 142–154; BP diastolic 65–72; PULSE 79–112; RESP 12–20; TEMP 37.2–37.3; O2SAT 94–100
[2017-12-21] MEDS: Ipratropium/Albuterol Sulfate 3 ML AMPUL.NEB INHALATION ×3 (02:56→11:17)
[2017-12-21] MEDS: Albuterol 2.5 MG/3 ML VIAL.NEB. INHALATION (04:18)
--- NOTE | 2017-12-21 04:20 | CPS ---
patient requested prn treatment due to sob post return from bathroom.
[2017-12-21] MEDS: Gabapentin 300 MG Capsule PO ×2 (06:32→13:24)
[2017-12-21] MEDS: Heparin Injection (Vial) 5,000 UNIT/ML VIAL 5000 UNIT SC ×2 (06:32→13:25)
[2017-12-21] MEDS: 0.9% NaCl Peripheral Flush Adult/Peds IV ×2 (06:32→13:24)
[2017-12-21] MEDS: Bisacodyl 5 MG Tablet PO (09:36)
[2017-12-21] MEDS: Aspirin 325 MG Tablet PO (09:36)
[2017-12-21] MEDS: guaiFENesin 600 MG Tablet PO (09:36)
[2017-12-21] MEDS: Pantoprazole Sodium 20 MG Tablet PO (09:36)
[2017-12-21] MEDS: Magnesium Hydroxide 30 ML UDC PO (09:36)
[2017-12-21] MEDS: Azithromycin 250 MG Tablet 500 MG PO (09:36)
--- NOTE | 2017-12-21 09:41 | CASEMGMT ---
Addendum entered by Lin Vanegas 12/21/17 09:58: Call received from Abdi at Hospice and she states she tried to call pt without success at this time to see if she could come and have him sign papers. She asks for this RN CM to go to room and ask pt at this time. Pt agrees to have Hospice come and sign papers at this time. Abdi aware and states she will be here about 1030. Zheng HAYNES CM Original Note: This RN CM received call from Lenny at [facility] and he is inquiring about discharge time and pt condition, updated at this time and he states that pt will need F2F from Hospice physician again d/t revoking hospice to come in here. Lenny also requests that pt's RN call Hospice with report when able, Marie HAYNES aware and voices understanding. Zheng HAYNES CM
--- NOTE | 2017-12-21 11:32 | NURSING ---
Called and gave report to Lenny at [facility] hosp[facility]
--- NOTE | 2017-12-21 11:48 | DCINST_ITS ---
- Discharge Diagnoses Current Active Problems: Current Active and Chronic Problems Acute exacerbation of chronic obstructive pulmonary disease (COPD) (Acute) Leukocytosis (leucocytosis) (Acute) You will use the following diet at home:: No restrictions Your food should be the consistency of: Regular Your liquids should be the consistency of: Regular/Thin Discharge Activity: Return to Normal Activity Allergies/Adverse Reactions: Allergies No Known Allergies Allergy (Verified 12/19/17 12:10) Medications to take at Discharge Aspirin 325 mg PO DAILY@0800 07/11/13 Albuterol Inhaler [Ventolin Hfa] 1 - 2 puff INHALATION Q2H PRN PRN #1 07/13/13 Beclomethasone Diprop Inhaler [Qvar 80 Mcg Inhaler] 1 puff INHALATION BID 12/15/16 Gabapentin [Neurontin] 300 mg PO TID 12/15/16 Pravastatin Sodium [Pravachol] 20 mg PO QHS 12/15/16 Alfuzosin HCl [Alfuzosin HCl ER] 10 mg PO DAILY 12/19/17 Ipratropium/Albuterol Sulfate [Duoneb] 3 ml INHALATION 4X/DAY 12/19/17 Meloxicam 15 mg PO DAILY 12/19/17 Omeprazole 20 mg PO DAILY 12/19/17 Azithromycin [Zithromax] 500 mg PO Q24 #1 tab 12/21/17 Guaifenesin [Mucinex] 600 mg PO BID tablet 12/21/17 Prednisone 10 mg PO UD #30 tab 12/21/17 The following prescriptions were given: Azithromycin [Zithromax] 500 mg PO Q24 #1 tab Prednisone 10 mg PO UD #30 tab Primary Care Physician: Antony Camacho MD [Primary Care Provider] - Please follow up with your Primary Care Physician in: 1-2 weeks Test Results: Test results from this visit will be discussed in further detail at your follow- up appointment, if applicable. Proposed Discharge Date: 12/21/17
--- NOTE | 2017-12-21 14:46 | PCM.DC.SUM ---
<Karan Ghotra - Last Filed: 12/21/17 14:46> Discharge Date and Diagnosis Date of Admission: 12/19/17 Date of Discharge: 12/21/17 - Primary Discharge Diagnosis Active and Suspected Problems Acute COPD exacerbation Acute sepsis secondary to acute bronchitis End-stage COPD Chronic hypoxic respiratory failure Hyperlipidemia BPH Former nicotine abuse - Secondary Discharge Diagnosis Chronic Problems COPD (chronic obstructive pulmonary disease) (Chronic) Tobacco user (Chronic) Generalized osteoarthritis (Chronic) Hospital Course and Treatment Imaging Results: RAD/Chest 1 View (Portable) IMPRESSION: Hyperinflation. Findings suggestive of emphysematous changes. Operations: None Procedures: None Summary of Care Provided: Physical exam on day of discharge: General: Resting comfortably NAD Psych: A/Ox3 normal affect HEENT: PEARRLA AT NC Neck: Supple NT CV: RRR no m/t/r/g/h Resp: CTA, no adventitious sounds, severely diminished throughout all lung chamberlain, slightly improved since yesterday. Abd: [id number] Soft NT no guarding or rigidity Ext: DP2+= no edema Skin: W/D normal turgor Lymph/Heme: No active bleeding or adenopathy Neuro: CN2-12 intact Hospital course: The patient is a 67 year old M who is currently on hospice for end-stage COPD, chronic hypoxic respiratory failure also with history of BPH, hypertension, who presented to the emergency room after discontinuing hospice care for increased shortness of breath, productive cough. He is found to be septic with acute bronchitis, negative chest x-ray, leukocytosis, tachycardia, tachypnea, with mildly elevated bicarb on ABG. He is placed on BiPAP and admitted to the PCU. He was started on IV azithromycin, provide with IV steroids, and aerosol therapy. The patient responded well to therapy as above. He was taken off BiPAP and remained stable on his home oxygen level-uses 3 L/min all the time. He desire to go back home on hospice. He was placed on a prednisone taper, and will complete a total of 3 days of azithromycin therapy, 500 mg daily. He will resume home aerosol therapy, has nebulizer in place. He was discharged home in stable condition to resume hospice. This patient was seen by Karan Ghotra PA-C under the supervision of Doctor Jacob. [] Discharge Diet: No Restrictions Discharge Activity: Return to Normal Activity Home Medications: Medications to take at Discharge Aspirin 325 mg PO DAILY@0800 07/11/13 Albuterol Inhaler [Ventolin Hfa] 1 - 2 puff INHALATION Q2H PRN PRN #1 07/13/13 Beclomethasone Diprop Inhaler [Qvar 80 Mcg Inhaler] 1 puff INHALATION BID 12/15/16 Gabapentin [Neurontin] 300 mg PO TID 12/15/16 Pravastatin Sodium [Pravachol] 20 mg PO QHS 12/15/16 Alfuzosin HCl [Alfuzosin HCl ER] 10 mg PO DAILY 12/19/17 Ipratropium/Albuterol Sulfate [Duoneb] 3 ml INHALATION 4X/DAY 12/19/17 Meloxicam 15 mg PO DAILY 12/19/17 Omeprazole 20 mg PO DAILY 12/19/17 Azithromycin [Zithromax] 500 mg PO Q24 #1 tab 12/21/17 Guaifenesin [Mucinex] 600 mg PO BID tablet 12/21/17 Prednisone 10 mg PO UD #30 tab 12/21/17 Following Prescrptions Were Given to Patient: Azithromycin [Zithromax] 500 mg PO Q24 #1 tab Prednisone 10 mg PO UD #30 tab Primary Care Physician: Antony Camacho MD [Primary Care Provider] - Please follow up with your Primary Care Physician in: 1-2 weeks Disposition: Home with Hospice Minutes spent on discharge:: 35 Patient Condition:: Stable Medical Necessity - Tobacco Use Smoking Status: Former smoker Tobacco Use: Cigarettes, Cigars, Pipe Meaningful Use Info Meaningful Use Diagnoses (Choose all that apply): None applicable <Alex James - Last Filed: 12/21/17 16:56> Discharge Date and Diagnosis - Secondary Discharge Diagnosis Chronic Problems COPD (chronic obstructive pulmonary disease) (Chronic) Tobacco user (Chronic) Generalized osteoarthritis (Chronic) Hospital Course and Treatment Summary of Care Provided: The patient was seen and examined. He is agreed for hospice care. He understands his poor prognosis secondary to advanced COPD and chronic combined respiratory failure moderate protein calorie malnutrition. []General: Alert, Oriented x3, Cooperative, - - Thin built HEENT: Atraumatic, PERRLA, EOMI, Normocephalic Neck: Supple, No JVD, Negative Carotid Bruits Lungs: Diminished, Rhonchi, Short of Breath, Wheezes Cardiovascular: Regular rate, Regular Rhythm, Normal S1, Normal S2, No murmurs Abdomen: Bowel Sounds Present, Soft, Non Tender Extremities: No edema, Capillary Refill Less than 3 Seconds Skin: No rashes, No breakdown Musculoskeletal: No Tenderness to Palpation of Joints or Extremities Neurological: Cranial nerves II-XII grossly intact Psych/Mental Status: Normal Affect, Appropriate This patient was seen in conjunction with Karan LAI. I have independently interviewed and examined the patient and reviewed pertinent history, examination findings, laboratory and plan of management. I have reviewed the note and agree with the documented findings with the few additional points. In brief, patient is admitted for acute on chronic shortness of breath and wheezing consistent with COPD exacerbation with acute bronchitis, most probably viral. Currently still on 3 L of oxygen, consistent with chronic combined hypoxic respiratory failure. Chest x-ray does not show acute infiltrate but emphysematous changes. Labs reviewed and shows leukocytosis with left shift. Discharge medication reconciliation done. Follow-up instructions completed. Patient is discharged home with home hospice care. Total time spent, exact 35 minutes on discharge meds reconciliation, examination, review of imaging and blood test and discussion with the patient on follow-up instructions. I have discussed my assessment with Karan LAI and orders have been reviewed. Code Visit Inpatient E&M: 71985 [facility]
--- NOTE | 2017-12-21 14:58 | CASEMGMT ---
Discharge instructions faxed to [facility]. Fax confirmation received that fax was sent/went through. Mayra DELGADILLON RN CM
== END 2017-12-21 16:18 | disposition hospice, home (50) | DRG 871 ==
LOC: ED 13:42 → PCU 13:53
PROVIDERS: Admitting Provider Internal Medicine; Emergency Provider Emergency Medicine; Family Provider Family Medicine; PCP Family Medicine; Referring Provider Internal Medicine; Visit Provider Internal Medicine
DX: A41.9 Sepsis, unspecified organism (principal); J96.21 Acute and chronic respiratory failure with hypoxia; J44.1 Chronic obstructive pulmonary disease with (acute) exacerbation; J44.0 Chronic obstructive pulmonary disease with (acute) lower respiratory infection; E44.0 Moderate protein-calorie malnutrition; Z87.891 Personal history of nicotine dependence; Z23 Encounter for immunization; E78.5 Hyperlipidemia, unspecified; Z99.81 Dependence on supplemental oxygen; N40.0 Benign prostatic hyperplasia without lower urinary tract symptoms; M15.9 Polyosteoarthritis, unspecified; Z51.5 Encounter for palliative care; Z68.22 Body mass index [BMI] 22.0-22.9, adult; J20.9 Acute bronchitis, unspecified
CPT/HCPCS: 36415; 36600; 71045; 80048; 82803; 83605; 84484; 85025; 87040; 87070; 87077; 87205; 87631; 93005; 94002; 94003; 94640; 94668; 97110; 97116; 97162; 97166; 97530; 97802; 99285; J7030; 90686; A4216

== ENCOUNTER 2018-07-09 14:47 | Emergency (ER) | payer MEDICARE, SELFPAY ==
[2018-07-09 14:48] VITALS: BP 140/81; PULSE 100; RESP 17; TEMP 36.8; O2SAT 96; BMI 22.6
[2018-07-09 15:10] VITALS: O2SAT 3
--- NOTE | 2018-07-09 16:02 | RAD_ITS ---
STUDY: X-RAY - THORACIC SPINE REASON FOR EXAM: Male, 68 years old. Pain. TECHNIQUE: 3 view(s) of the thoracic spine were obtained. COMPARISON: None. FINDINGS: Normal kyphosis of the thoracic spine. There is no substantial scoliosis. There is multilevel endplate spondylosis of the thoracic vertebrae. There is multilevel disc space narrowing of the thoracic spine. There is an anterior compression deformity of T12. The soft tissue structures are unremarkable. RAD/Thoracic Spine 2 Views IMPRESSION: Degenerative changes. Anterior compression deformity of T12, of uncertain chronicity, likely chronic. Electronically Signed: Ebony Talbert MD at 17:45 EDT Tel , Service support ,
--- NOTE | 2018-07-09 17:00 | RAD_ITS ---
STUDY: X-RAY - LUMBAR SPINE REASON FOR EXAM: Male, 68 years old. Pain. TECHNIQUE: 3 view(s) of the lumbar spine were obtained. COMPARISON: None FINDINGS: Normal lumbar lordosis. There is no substantial scoliosis. There is a normal alignment of the vertebrae. There is multilevel endplate spondylosis of the lumbar vertebrae. There is a defect of the L4 superior endplate There is multi-level degenerative disc disease with multi-level disc space narrowing. . There is atherosclerotic calcification of the abdominal aorta without a demonstrated aneurysm. RAD/Lumbar Spine 2 or 3 Views IMPRESSION: Degenerative changes. L4 superior endplate deformity of uncertain chronicity. Electronically Signed: Ebony Talbert MD at 17:52 EDT Tel , Service support ,
[2018-07-09] MEDS: HYDROmorphone 1 MG/ML Syringe IM (17:22)
[2018-07-09] MEDS: Ondansetron 4 MG/2 ML Vial IM (17:22)
--- NOTE | 2018-07-09 18:04 | ED.VISSUMM ---
- ER Visit Summary Date of Service: 07/09/18 Chief Complaint: [Fall and injury to back] History of Present Illness: The patient is a 68 M [presents the emergency department after sustaining a fall yesterday evening around 9 PM. Patient states that he was walking through his front door when he lost his balance and fell, twisting and landing onto his right side. Patient complains of pain in his back. He denies striking his head or loss of consciousness. He denies any chest pain or abdominal pain. Patient is currently on hospice for end-stage COPD. Patient is on chronic home O2 therapy. He denies any pain rating down his legs. He denies weakness the extremities. He denies any paresthesias. Patient denies striking his head.] Physical Examination: [HEENT-PERRLA, EOMI. Cranial nerves II through XII grossly intact. TMs clear. Mucous membranes moist. No adenopathy. Cardiovascular-regular rate and rhythm without murmur or ectopy Lungs-clear to auscultation, chest wall stable without crepitus or subcu emphysema Abdomen-normoactive bowel sounds, soft, nontender, no rebound or rigidity, no peritoneal signs. Back exam-patient has diffuse tenderness palpation over the thoracic and lumbar spine. There is no ecchymosis or bruising noted. No bony step-offs. Extremities-intact ?4, normal range of motion, normal pulses, atraumatic] Test Results: [X-rays of the thoracic spine obtained showed compression deformity at T12 age uncertain. X-rays of the lumbar spine showed L4 compression fracture of the superior endplate age uncertain.] Emergency Department Course and Treatment: [Patient did receive Dilaudid 1 mg IM as well as Zofran 4 mg IM.] Treatment Plan: [Patient has morphine at home for pain and his pain can be managed by hospice.] Disposition: [Discharged home in stable condition. Patient advised to return if worsening pain weakness in extremities change of bowel or bladder function, or condition should worsen anyway.] Impression: [Mechanical fall T12 compression fracture L4 compression fracture] This note was generated with [employer] dictation software. It may contain incorrect words, spelling, and punctuation that were not noted in review of the chart prior to signing ED Disposition - Plan for ED Patient: Referrals: Care Physician,No Primary [Primary Care Provider] -
--- NOTE | 2018-07-09 18:07 | ED.DCSUM_ITS ---
- ER Visit Summary Date of Service: 07/09/18 Chief Complaint: [Fall and injury to back] History of Present Illness: The patient is a 68 M [presents the emergency department after sustaining a fall yesterday evening around 9 PM. Patient states that he was walking through his front door when he lost his balance and fell, twisting and landing onto his right side. Patient complains of pain in his back. He denies striking his head or loss of consciousness. He denies any chest pain or abdominal pain. Patient is currently on hospice for end-stage COPD. Patient is on chronic home O2 therapy. He denies any pain rating down his legs. He denies weakness the extremities. He denies any paresthesias. Ja cyndi denies striking his head.] Physical Examination: [HEENT-PERRLA, EOMI. Cranial nerves II through XII grossly intact. TMs clear. Mucous membranes moist. No adenopathy. Cardiovascular-regular rate and rhythm without murmur or ectopy Lungs-clear to auscultation, chest wall stable without crepitus or subcu emphysema Abdomen-normoactive bowel sounds, soft, nontender, no rebound or rigidity, no peritoneal signs. Back exam-patient has diffuse tenderness palpation over the thoracic and lumbar spine. There is no ecchymosis or bruising noted. No bony step-offs. Extremities-intact ?4, normal range of motion, normal pulses, atraumatic] Test Results: [X-rays of the thoracic spine obtained showed compression deformity at T12 age uncertain. X-rays of the lumbar spine showed L4 compression fracture of the superior endplate age uncertain.] Emergency Department Course and Treatment: [Patient did receive Dilaudid 1 mg IM as well as Zofran 4 mg IM.] Treatment Plan: [Patient has morphine at home for pain and his pain can be managed by hospice.] Disposition: [Discharged home in stable condition. Patient advised to return if worsening pain weakness in extremities change of bowel or bladder function, or condition should worsen anyway.] Impression: [Mechanical fall T12 compression fracture L4 compression fracture] This note was generated with [employer] dictation software. It may contain incorrect words, spelling, and punctuation that were not noted in review of the chart prior to signing ED Disposition - Plan for ED Patient: Referrals: Care Physician,No Primary [Primary Care Provider] -
--- NOTE | 2018-07-09 18:07 | ED.DEP ---
ED Disposition - Plan for ED Patient: Instructions: ED Mechanical Fall, Back Fracture (Compression Fracture), ED Fx Comp Vertebral Referrals: Care Physician,No Primary [Primary Care Provider] - Additional Instructions: see hospice for pain management
[2018-07-09 18:21] VITALS: BP 143/89; PULSE 73; RESP 24; O2SAT 96
== END 2018-07-09 18:24 | disposition home or self-care (01) ==
PROVIDERS: Emergency Provider Emergency Medicine
DX: S22.089A Unspecified fracture of T11-T12 vertebra, initial encounter for closed fracture (principal); S32.049A Unspecified fracture of fourth lumbar vertebra, initial encounter for closed fracture; W18.39XA Other fall on same level, initial encounter; Y93.01 Activity, walking, marching and hiking; Y92.008 Other place in unspecified non-institutional (private) residence as the place of occurrence of the external cause; I10 Essential (primary) hypertension; J44.9 Chronic obstructive pulmonary disease, unspecified; Z99.81 Dependence on supplemental oxygen; Z79.899 Other long term (current) drug therapy; Z51.5 Encounter for palliative care
CPT/HCPCS: 72070; 72100; 96372; 99282; J2405